=== PATIENT | female | born 1995 | race Caucasian/White ===

== ENCOUNTER 2019-10-19 04:49 | Emergency (ER) | payer OTHER ==
[~2019-10-19] VITALS: Ht 149.9 cm; Wt 56.7 kg
--- NOTE | 2019-10-19 04:55 | NUR ---
Patient to ER bed 6 to gown for evaluation. Side rails up.
--- NOTE | 2019-10-19 04:55 | NUR ---
PLACED IN BED 6. HERE FOR FOREIGN BODY SENSATION IN THE THROAT AFTER PT.TOOK THE ELASTIC BANDS FROM HER BRACES. ONE OF BANDS IS MISSING AND SHE'S NOT SURE IF SHE ACCIDENTALLY SWALLOWED IT OR NOT.
[2019-10-19 04:57] VITALS: BP_SYST 110
--- NOTE | 2019-10-19 05:43 | NUR ---
ER-MD CAME BY BEDSIDE TO EVALUATE PT.
[2019-10-19 05:57] VITALS: BP_SYST 110
--- NOTE | 2019-10-19 05:57 | NUR ---
DISCHARGED STABLE. VERBAL AND WRITTEN AFTERCARE INSTRUCTIONS GIVEN. VERBALIZED UNDERSTANDING. LEFT AMBULATORY WITH STABLE GAIT.
== END 2019-10-19 05:57 | disposition home or self-care (01) ==
LOC: SED 04:49
DX: J02.9 Acute pharyngitis, unspecified (principal)
CPT/HCPCS: 99282